=== PATIENT | male | born 1930 | race Caucasian/White ===

== ENCOUNTER 2017-01-29 19:02 | Inpatient (IN) | payer MEDICARE ==
[2017-01-29] MEDS ORDERED: NS 0.9% 1000 ML* 1,000 ML IV ONE (20:05)
[2017-01-29] MEDS ORDERED: Vancomycin(*) 1,000 MG in NS 0.9% 250 ML* 250 ML IVPB ONE (20:05)
[2017-01-29] MEDS ORDERED: Acetaminophen TAB* 325 MG PO ONE (20:13)
--- NOTE | 2017-01-29 20:37 | RAD ---
HISTORY: Fever COMPARISONS: September 06, 2012 VIEWS:1: Single frontal portable view of the chest at 8:26 PM FINDINGS: LINES AND TUBES: None. CARDIOMEDIASTINAL SILHOUETTE: The cardiomediastinal silhouette is normal for portable technique. PLEURA: The costophrenic angles are sharp. No pleural abnormalities are noted. LUNG PARENCHYMA: There is a fine pattern of reticular opacification within the periphery of the lungs predominantly. This is similar to the 2013 examination. ABDOMEN: The upper abdomen is clear. There is no subphrenic gas. BONES AND SOFT TISSUES: No bone or soft tissue abnormalities are noted. IMPRESSION: STABLE CHRONIC INTERSTITIAL CHANGES. NO ACUTE PULMONARY DISEASE
[2017-01-29 21:03] LABS: Hematocrit 30 % (42-52); Hemoglobin 9.5 g/dl (14.0-18.0); Mean Corpuscular HGB Conc 32 g/dl (31-36); Mean Corpuscular Hemoglobin 29 pg (27-31); Mean Corpuscular Volume 92 fL (80-94); Mean Platelet Volume 8 um3 (7.4-10.4); Red Blood Count 3.24 10^6/ul (4.0-5.4); Red Cell Distribution Width 16 % (10.5-15)
[2017-01-29 21:05] LABS: Comments Flag Yes
[2017-01-29 21:06] LABS: Add Diff/Slide Review? Slide Review Added
[2017-01-29 21:18] LABS: Albumin 2.7 g/dL (3.2-5.2); BUN/Creatinine Ratio 25.6 (8-20); Calcium 8.2 mg/dL (8.6-10.3); EGFR African American 65.4 (>60); EGFR Non-African American 50.9 (>60); Globulin 3.6 g/dL (2-4); Potassium 4.4 mmol/L (3.5-5.0); Total Bilirubin 1.4 mg/dL (0.2-1.0); Total Protein 6.3 g/dL (6.4-8.9)
[2017-01-29 21:22] LABS: Troponin I 0.04 ng/mL (<0.04)
[2017-01-29 21:25] LABS: Immature Granulocytes 14 % (0-9); Neutrophil % 78 % (38-83)
[2017-01-29 21:26] LABS: RBC Morphology Normal (Normal)
[2017-01-29] MEDS ORDERED: NS 0.9% 250 ML* 250 ML ONE (22:10)
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
[2017-01-30] MEDS ORDERED: CMCS: Melatonin (NF) 3 MG TAB PO PRN (00:34)
[2017-01-30] MEDS ORDERED: Ondansetron INJ* 2 MG/ML VIAL IV PRN (00:35)
[2017-01-30] MEDS ORDERED: oxyCODONE TAB* 5 MG TAB PO PRN ×2 (00:35→06:05)
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
[2017-01-30] MEDS ORDERED: NS 0.9% 1000 ML* 1,000 ML IV ONE (00:45)
[2017-01-30] MEDS ORDERED: Vancomycin(*) 1,250 MG in NS 0.9% 250 ML* 250 ML IVPB ONE (01:00)
[2017-01-30 01:08] LABS: Budding Yeast Present (Absent); Urine Bacteria Absent (Absent); Urine Bilirubin Negative (Negative); Urine Glucose Negative (Negative); Urine Nitrite Positive (Negative)
[2017-01-30] MEDS ORDERED: Vancomycin per Pharmacy* NOTE FOLLOW UP PRN (01:17)
[2017-01-30] MEDS: NS 0.9% 1000 ML* 1,000 ML IV SCH ×3 (03:27→16:23)
[2017-01-30] MEDS ORDERED: Cefepime(*) 1 GM in NS 0.9% 50 ML* 50 ML IVPB SCH (04:00)
[2017-01-30 04:58] LABS: Hematocrit 29 % (42-52); Hemoglobin 9.3 g/dl (14.0-18.0); Mean Corpuscular HGB Conc 32 g/dl (31-36); Mean Corpuscular Hemoglobin 29 pg (27-31); Mean Corpuscular Volume 92 fL (80-94); Mean Platelet Volume 8 um3 (7.4-10.4); Red Blood Count 3.18 10^6/ul (4.0-5.4); Red Cell Distribution Width 16 % (10.5-15); White Blood Count 33.1 10^3/ul (3.5-10.8)
[2017-01-30 05:01] LABS: BUN/Creatinine Ratio 25.2 (8-20); Calcium 8.1 mg/dL (8.6-10.3); EGFR African American 71.6 (>60); EGFR Non-African American 55.7 (>60)
[2017-01-30 05:02] LABS: Comments Flag Yes
[2017-01-30] MEDS: Omeprazole CAP* 20 MG PO SCH (05:48)
[2017-01-30 06:13] LABS: Troponin I 0.13 ng/mL (<0.04)
[2017-01-30] MEDS ORDERED: oxyCODONE ORAL.SOLN* 5 MG/5 ML UDC PO PRN (06:30)
[2017-01-30] MEDS ORDERED: Levothyroxine TAB* 75 MCG TAB PO SCH (07:00)
--- NOTE | 2017-01-30 07:42 | RAD ---
INDICATION: Sepsis recent hip fracture repair. COMPARISON: Comparison is made with a prior x-ray study of the right hip from April 06, 2015. TECHNIQUE: 2 views of the right femur were obtained. FINDINGS: There is soft tissue swelling adjacent to the right hip. The patient is status post total right hip replacement surgery. The bones and prostheses are in normal alignment. There are 2 surgical plates transfixed with multiple screws transfixing a fracture of the acetabulum. There are multiple surgical ilana present laterally. There is a single surgical clip which projects over the region of the right greater trochanter. No bony erosive changes are seen. IMPRESSION: SOFT TISSUE SWELLING, POSTSURGICAL AND POSTTRAUMATIC CHANGES DESCRIBED.
--- NOTE | 2017-01-30 07:42 | RAD ---
INDICATION: Right hip pain. Recent fracture. COMPARISON: April 06, 2015 TECHNIQUE: An AP view of the pelvis and AP views of the hip in neutral and abducted position were obtained FINDINGS: Bones: There are no acute bony findings. There is interval postoperative fixation of a fracture the right hemipelvis involving the acetabulum and right superior and inferior pubic rami. There is existing right hip prosthesis which appears normally seated.. Joint spaces: Advanced narrowing/osteocytic change left hip. SI joints/symphysis: The SI joints and symphysis are intact. Other: None IMPRESSION: SUBACUTE FRACTURES RIGHT HEMIPELVIS. RIGHT HIP ARTHROPLASTY. ADVANCED OSTEOARTHRITIS LEFT HIP.
--- NOTE | 2017-01-30 07:45 | RAD ---
INDICATION: Sepsis, assess for source. TECHNIQUE: 2 views of the right forearm were obtained. FINDINGS: There is a splint present along the lateral aspect of the forearm and wrist. The bones appear osteopenic and in normal alignment. There is diffuse soft tissue swelling present. No significant focal osseous abnormality is seen. IMPRESSION: SOFT TISSUE SWELLING, NO FOCAL OSSEOUS ABNORMALITY IS SEEN.
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
[2017-01-30] MEDS: Tamsulosin CAP* 0.4 MG PO SCH (08:49)
[2017-01-30] MEDS: Docusate CAP* 100 MG PO SCH ×2 (08:49→21:15)
[2017-01-30] MEDS: Levothyroxine TAB* 88 MCG TAB PO SCH (08:49)
--- NOTE | 2017-01-30 08:49 | RAD ---
Indication: Right hand injury. 4 views of the right hand demonstrates degenerative changes of the trapezium first metacarpal joint. Impacted fracture of the proximal phalanx of the thumb is noted. IMPRESSION: Impacted comminuted fracture proximal and of the proximal phalanx of the thumb.
--- NOTE | 2017-01-30 08:52 | RAD ---
Indication: Right wrist injury 3 views of the wrist demonstrates no fracture. Fracture of the proximal phalanx of the thumb is noted. Degenerative changes of the carpal metacarpal joint is present. IMPRESSION: NO FRACTURE OF THE WRIST IS NOTED.
[2017-01-30] MEDS: Vancomycin(*) 750 MG in NS 0.9% 250 ML* 250 ML IVPB SCH ×2 (10:42→21:39)
--- NOTE | 2017-01-30 10:57 | PN ---
Progress Note - Progress Note Date of Service: 01/30/17 Note: Xray of the right thumb reviewed: + for impacted intra articular proximal phalanx fracture right thumb, advanced CMC arthritis. Patient was given the option of continuation with orthoplast splint or thumb spica brace, he and family opted for the latter. 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 Velcro thumb spica applied without difficulty for protection.
[2017-01-30] MEDS: oxyCODONE TAB* 5 MG TAB PO PRN ×2 (11:56→17:53)
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
--- NOTE | 2017-01-30 13:15 | RAD ---
INDICATION: Evaluate for pyelonephritis. COMPARISON: There are no prior studies available for comparison. TECHNIQUE: Multiple real-time images of the kidneys were obtained. FINDINGS: The kidneys are normal in size shape and echogenicity. The right kidney measured 11.6 x 4.5 x 5.1 cm and the left kidney measured 11.7 x 5.0 x 5.0 cm. No hydronephrosis is present. There is a mildly complex cyst arising from the superior pole of the left kidney measuring 5.8 x 4.2 x 3.8 cm. IMPRESSION: 1. NO EVIDENCE FOR HYDRONEPHROSIS. 2. MILDLY COMPLEX CYST ARISING FROM THE SUPERIOR POLE OF THE LEFT KIDNEY RECOMMEND A FOLLOW-UP RENAL ULTRASOUND IN 6 MONTHS TIME TO DEMONSTRATE STABILITY.
[2017-01-30] MEDS: Cefepime(*) 1 GM in NS 0.9% 50 ML* 50 ML IVPB SCH (16:23)
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
[2017-01-30] MEDS: Atorvastatin* 10 MG TAB PO SCH (17:49)
[2017-01-30] MEDS: Donepezil TAB* 5 MG PO SCH (17:51)
[2017-01-30] MEDS: Acetaminophen TAB* 325 MG PO PRN (17:53)
[2017-01-31] MEDS: Cefepime(*) 1 GM in NS 0.9% 50 ML* 50 ML IVPB SCH ×2 (04:09→16:50)
[2017-01-31 05:37] LABS: Hematocrit 27 % (42-52); Hemoglobin 8.7 g/dl (14.0-18.0); Mean Corpuscular HGB Conc 32 g/dl (31-36); Mean Corpuscular Hemoglobin 30 pg (27-31); Mean Corpuscular Volume 92 fL (80-94); Mean Platelet Volume 8 um3 (7.4-10.4); Red Blood Count 2.93 10^6/ul (4.0-5.4); Red Cell Distribution Width 16 % (10.5-15); White Blood Count 18.4 10^3/ul (3.5-10.8)
[2017-01-31 05:52] LABS: Albumin 2.2 g/dL (3.2-5.2); BUN/Creatinine Ratio 26.7 (8-20); C Reactive Protein 222.1 mg/L (< 5.00); Calcium 7.5 mg/dL (8.6-10.3); EGFR African American 73.7 (>60); EGFR Non-African American 57.3 (>60); Magnesium 1.9 mg/dL (1.9-2.7); Potassium 3.9 mmol/L (3.5-5.0); Total Protein 5.2 g/dL (6.4-8.9)
[2017-01-31] MEDS: Omeprazole CAP* 20 MG PO SCH (05:55)
[2017-01-31] MEDS: Levothyroxine TAB* 88 MCG TAB PO SCH (05:56)
[2017-01-31] MEDS: Heparin VIAL(*) 5000 UNITS/ML VIAL (FIVE THOUSAND) SUBCUT SCH ×3 (05:56→21:54)
[2017-01-31] MEDS: NS 0.9% 1000 ML* 1,000 ML IV SCH ×2 (06:36→20:35)
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
[2017-01-31] MEDS ORDERED: Vancomycin Trough Check NOTE FOLLOW UP ONE (10:00)
[2017-01-31] MEDS: Docusate CAP* 100 MG PO SCH ×2 (10:19→21:56)
[2017-01-31] MEDS: Tamsulosin CAP* 0.4 MG PO SCH (10:32)
[2017-01-31] MEDS: Acetaminophen TAB* 325 MG PO PRN (10:33)
[2017-01-31] MEDS: Vancomycin(*) 750 MG in NS 0.9% 250 ML* 250 ML IVPB SCH ×2 (11:32→21:56)
[2017-01-31] MEDS: Potassium & Sodium Phos 250MG* = 1 PACKET PO SCH ×2 (14:07→20:58)
[2017-01-31] MEDS: Donepezil TAB* 5 MG PO SCH (17:53)
[2017-01-31] MEDS: Atorvastatin* 10 MG TAB PO SCH (17:53)
[2017-02-01] MEDS: Cefepime(*) 1 GM in NS 0.9% 50 ML* 50 ML IVPB SCH ×2 (04:00→16:03)
[2017-02-01] MEDS: Levothyroxine TAB* 88 MCG TAB PO SCH (05:39)
[2017-02-01] MEDS: Omeprazole CAP* 20 MG PO SCH (05:39)
[2017-02-01] MEDS: Heparin VIAL(*) 5000 UNITS/ML VIAL (FIVE THOUSAND) SUBCUT SCH ×3 (05:40→21:42)
[2017-02-01 06:52] LABS: Hematocrit 26 % (42-52); Hemoglobin 8.4 g/dl (14.0-18.0); Mean Corpuscular HGB Conc 33 g/dl (31-36); Mean Corpuscular Hemoglobin 30 pg (27-31); Mean Corpuscular Volume 92 fL (80-94); Mean Platelet Volume 8 um3 (7.4-10.4); Red Cell Distribution Width 16 % (10.5-15); White Blood Count 7.6 10^3/ul (3.5-10.8)
[2017-02-01] MEDS: Docusate CAP* 100 MG PO SCH ×2 (07:16→21:36)
[2017-02-01 07:33] LABS: BUN/Creatinine Ratio 23.8 (8-20); C Reactive Protein 117.1 mg/L (< 5.00); Calcium 7.3 mg/dL (8.6-10.3); EGFR African American 89.9 (>60); EGFR Non-African American 69.9 (>60); Potassium 3.8 mmol/L (3.5-5.0)
--- NOTE | 2017-02-01 08:10 | PN ---
Progress Note - Progress Note Date of Service: 02/01/17 Note: Doing well this morning. Having minimal hip pain. Wound has been dry and is without a dressing. Tmax 99.6 over last 24 hours. No pain with logroll right hip. Wound c/d/i. [place] in place, No painful joint in any extremities this morning. Thumb spica brace in place. WBC trending down. 7.6 this morning. A/P: No evidence of hardware infection or septic arthritis. R thumb proximal phalanx fracture in thumb spica brace. Continue care. No orthopedic intervention at this time.
[2017-02-01] MEDS: Potassium & Sodium Phos 250MG* = 1 PACKET PO SCH ×3 (09:35→21:42)
[2017-02-01] MEDS: Tamsulosin CAP* 0.4 MG PO SCH (09:35)
[2017-02-01] MEDS: Vancomycin(*) 750 MG in NS 0.9% 250 ML* 250 ML IVPB SCH (09:39)
--- NOTE | 2017-02-01 10:30 | PN ---
Subjective - Subjective Reason for Note: Progress Note History: He is feeling improved. He had some chills this morning when having b'fast and is wearing a blanket, but no fever measured. He is in no pain when at rest, but transfers are painful. Sitting in a chair for 1 hour has made him tired. He has a history of BPH and was first catheterized at [facility] when he fractured his right acetabulum. he has not had his Delgado removed despite the likely UTI/sepsis. He has an appetite, no nausea or vomiting and is keeping down oral fluids - he continues to have NS running. Active Problems: Active Problems Elevated troponin I measurement (Acute) R74.8 Fracture of thumb, right, closed (Acute) S62.501A Pseudomonas aeruginosa infection (Acute) A49.8 Urinary tract infection associated with catheterization of urinary tract (Acute ) T83.511A, N39.0 Acetabular fracture (Chronic) S32.409A BPH with obstruction/lower urinary tract symptoms (Chronic) N40.1, N13.8 History of CVA (cerebrovascular accident) (Chronic) Z86.73 History of arthroplasty of right hip (Chronic) Z96.641 Hyperlipidemia (Chronic) E78.5 Primary hypothyroidism (Chronic) E03.9 Restless leg syndrome (Chronic) Current Medications: Current Medications Acetaminophen (Tylenol Tab*) 650 mg PO Q6H PRN PRN Reason: FEVER/PAIN Last Admin: 01/31/17 10:33 Dose: 650 mg Atorvastatin Calcium (Lipitor*) 10 mg PO 1700 [facility] Last Admin: 01/31/17 17:53 Dose: 10 mg Docusate Sodium (Colace Cap*) 200 mg PO BID [facility] Last Admin: 02/01/17 07:16 Dose: Not Given Donepezil HCl (Aricept Tab*) 10 mg PO QPM [facility] Last Admin: 01/31/17 17:53 Dose: 10 mg Heparin Sodium (Porcine) (Heparin Vial(*)) 5,000 units SUBCUT Q8HR [facility] Last Admin: 02/01/17 05:40 Dose: 5,000 units Cefepime HCl 1 gm/ Sodium (Chloride) 50 mls @ 100 mls/hr IVPB 0400,1600 [facility] Last Admin: 02/01/17 04:00 Dose: 100 mls/hr Levothyroxine Sodium (Synthroid Tab*) 88 mcg PO 0600 [facility] Last Admin: 02/01/17 05:39 Dose: 88 mcg Melatonin (Melatonin (Nf)) 3 mg PO BEDTIME PRN; Protocol PRN Reason: Sleep Omeprazole (Prilosec Cap*) 20 mg PO DAILY@0600 [facility] Last Admin: 02/01/17 05:39 Dose: 20 mg Oxybutynin Chloride (Ditropan Xl Tab*) 10 mg PO DAILY [facility] Oxycodone HCl (Roxycodone Tab*) 2.5 mg PO Q4H PRN PRN Reason: PAIN - MODERATE Last Admin: 01/30/17 17:53 Dose: 2.5 mg Oxycodone HCl (Oxycodone Oral.Soln*) 1 mg PO Q4H PRN PRN Reason: PAIN Potassium Phos/Sodium Phos (Neutra Phos 250 Mg Tolu*) 250 mg PO TID [facility] Last Admin: 02/01/17 09:35 Dose: 250 mg Tamsulosin HCl (Flomax Cap*) 0.4 mg PO DAILY [facility] Last Admin: 02/01/17 09:35 Dose: 0.4 mg - Review of Systems Constitutional Symptoms: Yes: Fatigue Pulmonary: Negative: Cough, Sputum, Respiratory Distress Cardiology: Negative: Chest Pain, Shortness of Breath, Palpitations, Swelling of Ankles Gastroenterology: Positive: Change in Bowel Habits - He has little bowel sensation and can't tell me if there has been a change Negative: Nausea, Vomiting, Anorexia Home Medications: Home Medications Medication Instructions Recorded Confirmed Type Atorvastatin* [Lipitor*] 10 mg PO 1700 03/21/13 01/29/17 History Donepezil TAB* [Aricept TAB*] 10 mg PO QPM 03/21/13 01/29/17 History Folic Acid 1,200 mcg PO QPM 03/21/13 01/29/17 History Levothyroxine TAB* [Synthroid 75 88 mcg PO DAILY 03/21/13 01/29/17 History MCG TAB*] Magnesium Oxide (mg Supplement 400 mg PO DAILY 03/21/13 01/29/17 History [Magnesium] Multiple Vitamin [Multivitamins] 1 cap PO DAILY 03/21/13 01/29/17 History [place]-3 Fatty Acids [Fish Oil] 1,000 mg PO QPM 03/21/13 01/29/17 History Acetaminophen [Tylenol] 650 mg PO Q6HR 01/29/17 01/29/17 History Alum & Mag Hydrox-Simethicone 1 david PO Q4HR PRN 01/29/17 History [Mylanta] Bisacodyl SUPP* [Dulcolax Supp*] 10 mg MT DAILY PRN 01/29/17 01/29/17 History Lovenox 30 mg PO BID 01/29/17 01/29/17 History Magnesium Hydroxide LIQ* [Milk of 30 ml PO AC PRN 01/29/17 01/29/17 History Magnesia LIQ*] Miralax* 17 gm PO DAILY 01/29/17 01/29/17 History Sennosides [Eq Natural Laxative] 17.2 mg PO BEDTIME 01/29/17 01/29/17 History Tamsulosin CAP* [Flomax CAP*] 2 tab PO DAILY 01/29/17 01/29/17 History oxyCODONE TAB* [Roxycodone TAB 5 2.5 mg PO Q4H PRN 01/29/17 01/29/17 History mg*] oxyCODONE TAB* [Roxycodone TAB 5 5 mg PO Q4H PRN 01/29/17 01/29/17 History mg*] Allergies: Allergies Allergy/AdvReac Type Severity Reaction Status Date / Time No Known Allergies Allergy Verified 03/29/13 10:58 Objective - Vital Signs Vital Signs: Vital Signs 01/31/17 01/31/17 01/31/17 11:46 15:39 16:17 Temperature 98.9 F 98.5 F Pulse Rate 63 65 Respiratory 16 20 Rate Blood Pressure 101/41 109/39 (mmHg) O2 Sat by Pulse 98 99 99 Oximetry 01/31/17 01/31/17 01/31/17 19:29 19:36 19:48 Temperature 99.6 F Pulse Rate 74 Respiratory 20 20 24 Rate Blood Pressure 112/45 (mmHg) O2 Sat by Pulse 100 Oximetry 01/31/17 01/31/17 02/01/17 20:40 23:56 03:59 Temperature 99.2 F 98.7 F Pulse Rate 76 72 Respiratory 20 20 Rate Blood Pressure 128/56 129/54 (mmHg) O2 Sat by Pulse 99 98 98 Oximetry 02/01/17 02/01/17 07:20 07:31 Temperature 98.6 F Pulse Rate 68 Respiratory 20 18 Rate Blood Pressure 120/52 (mmHg) O2 Sat by Pulse 98 98 Oximetry - Intake and Output Intake and Output: Intake & Output 01/29/17 01/30/17 01/31/17 02/01/17 11:59 11:59 11:59 11:59 Intake Total 1720 3224 2405 Output Total 440 1100 1200 Balance 1280 2124 1205 Weight 158 lb 8.198 oz 166 lb 6.4 oz 169 lb 12.8 oz Intake: IV Fluids 1124 1829 1555 ABX - CEFEPIME 55 ABX - VANCOMYCIN 520 NS (0.9%) 1124 1829 980 IVPB 66 365 ABX - CEFEPIME 110 ABX - VANCOMYCIN 255 NS (0.9%) 66 Oral 530 1030 850 Output: Delgado 440 1100 1200 Other: Date of Last Bowel T Movement # Bowel Movements 1 1 Estimated Stool Amount Medium Medium ADLs: Meal Record Start: 01/30/17 01: 32 Freq: 09,13,18 Status: Inactive Created 01/30/17 01:32 System (Rec: 01/30/17 01:32 System ICU-C25) Document 01/30/17 09:00 [id number] (Rec: 01/30/17 11:07 [id number] ICU-C10) ADLs: Meal Record Start: 01/30/17 12: 30 Freq: Status: Active Created 01/30/17 12:30 [id number] (Rec: 01/30/17 12:30 [id number] ICU-C10) Document 01/30/17 14:00 [id number] (Rec: 01/30/17 14:51 [id number] ICU-M06) Document 01/30/17 20:05 [id number] (Rec: 01/30/17 20:05 [id number] SSU-M09) Document 02/01/17 10:14 [id number] (Rec: 02/01/17 10:14 [id number] SSU-C19) Intake and Output Start: 01/29/17 19: 17 Freq: Status: Active Created 01/29/17 19:17 System (Rec: 01/29/17 19:17 System ED-C19) Intake and Output Start: 01/30/17 01: 32 Freq: 06,14,22 Status: Inactive Created 01/30/17 01:32 System (Rec: 01/30/17 01:32 System ICU-C25) Document 01/30/17 03:00 [id number] (Rec: 01/30/17 04:14 [id number] ICU-C12) Document 01/30/17 05:58 [id number] (Rec: 01/30/17 06:03 [id number] ICU-C12) Intake and Output Start: 01/30/17 12: 30 Freq: DAILY@0600,1400,2200 Status: Active Created 01/30/17 12:30 [id number] (Rec: 01/30/17 12:30 [id number] ICU-C10) Document 01/30/17 14:00 [id number] (Rec: 01/30/17 14:11 [id number] ICU-C10) Document 01/30/17 22:45 [id number] (Rec: 01/30/17 22:45 [id number] SSU-M02) Document 01/31/17 06:01 [id number] (Rec: 01/31/17 06:02 [id number] SSU-M02) Document 01/31/17 07:52 [id number] (Rec: 01/31/17 07:52 [id number] SSU-C12) Document 01/31/17 17:30 [id number] (Rec: 01/31/17 17:30 [id number] SSU-M10) Document 01/31/17 22:00 [id number] (Rec: 01/31/17 22:28 [id number] SSU-C05) Document 02/01/17 05:45 [id number] (Rec: 02/01/17 05:45 [id number] SSU-M03) - Physical Exam General Physical Exam Comment: He is sitting in the chair. He is oriented and conversational. He can give an account of himself, though there are some holes in his account. General: No Cyanosis, No Anemia, No Jaundice Skin: Normal: Rash Lungs and Chest: Yes: Chest Expansion Full, Chest Expansion Symetrica, Vessicular Breath Sounds. No: Crackles, Wheezes Heart Rate and Rhythm: Regular Additional Cardiovascular: Yes: Normal Heart Sounds. No: Heart Murmur, Pedal Edema Abdominal Exam: Yes: Soft, Bowel Sounds Present. No: Distention, Abdominal Mass , Abdominal Tenderness Results - Results Lab Results: Laboratory Results - last 24 hr 01/31/17 02/01/17 02/01/17 10:03 06:47 06:47 WBC 7.6 RBC 2.80 L Hgb 8.4 L Hct 26 L MCV 92 MCH 30 MCHC 33 RDW 16 H Plt Count 313 MPV 8 Sodium 132 L Potassium 3.8 Chloride 107 Carbon Dioxide 21 L Anion Gap 4 BUN 24 Creatinine 1.01 Est GFR ( Amer) 89.9 Est GFR (Non-Af Amer) 69.9 BUN/Creatinine Ratio 23.8 H Glucose 97 Calcium 7.3 L C-Reactive Protein 117.10 H Vancomycin Trough 9.7 Radiology Results: Patient Name: SILVANO MONTGOMERY Medical Record#: [id number] Ordering Physician: Fabio Wood MD Acct.#: [id number] : 1930 Age: 86 Sex: M Location: [facility] Exam Date: 01/30/17 0800 ADM Status: ADM IN Order Information: US RENAL COMPLETE Accession Number: [id number] CPT: 19861 INDICATION: Evaluate for pyelonephritis. COMPARISON: There are no prior studies available for comparison. TECHNIQUE: Multiple real-time images of the kidneys were obtained. FINDINGS: The kidneys are normal in size shape and echogenicity. The right kidney measured 11.6 x 4.5 x 5.1 cm and the left kidney measured 11.7 x 5.0 x 5.0 cm. No hydronephrosis is present. There is a mildly complex cyst arising from the superior pole of the left kidney measuring 5.8 x 4.2 x 3.8 cm. IMPRESSION: 1. NO EVIDENCE FOR HYDRONEPHROSIS. 2. MILDLY COMPLEX CYST ARISING FROM THE SUPERIOR POLE OF THE LEFT KIDNEY RECOMMEND A FOLLOW-UP RENAL ULTRASOUND IN 6 MONTHS TIME TO DEMONSTRATE STABILITY. <Electronically signed by Augustine Junior MD in OV> 01/30/17 1312 Dictated By: Augustine Junior MD Dictated Date/Time: 01/30/17 1312 Transcribed Date/Time: 01/30/17 7197 Copy to: CC:Ericka Bradley MD; Fabio Wood MD; Molly; Inocente Eason MD Imaging - [facility] Imaging - [facility] [place] Imaging - [facility] [address] [address] [place] [address] [place] [address] ph ([phone]) ph ([phone]) ph ([phone]) 1 of 1 EKG Report: Transthoracic echocardiogram Conclusions The left ventricular chamber size is normal. Mild concentric left ventricular hypertrophy is observed. Global left ventricular wall motion and contractility are within normal limits. There is normal left ventricular systolic function. The estimated ejection fraction is 60-65%. The left atrial chamber size is normal. The right ventricular cavity size is normal. The right ventricular global systolic function is normal. No significant valvular abnormalities noted. Compared to prior study from 08/2012, no significant changes noted. Other Results/Reports: RUN DATE: 02/01/17 [facility] LAB LIVE PAGE 1 RUN TIME: [address] [facility], [place], [place] [address] Specimen Inquiry Name: SILVANO MONTGOMERY : [address]: Ericka Bradley MD Acct: [id number] Unit: [id number] AGE: 86 Location: [place] [address] Re01/30/17 SEX: M Status: ADM IN SPEC: [id number] APOLINAR: 01/30/17-[address]: Fabio Wood MD REQ: [id number] RECD: 01/30/17-2210 STATUS: COMP OTHR DR: Ericka Barnes _ Inocente Eason MD SOURCE: URINE SPDESC: ORDERED: Urine Culture, S.pneumo Ur Ag COMMENTS: Verbal to [id number] ([facility]) by [id number] at 1213 on 01/31/17. Results read back accurately. Procedure Result Reported Site Urine Culture Final 02/01/17- 09 ML Organism 1 PSEUDOMONAS AERUGINOSA [place] Count 50-75,000 (Many) CFU/ML 1. PSEUDOMONAS AERUGINOSA [facility] RX Ampicillin >=32 R Cefazolin >=64 R Cefepime 4 S Ceftriaxone R Ciprofloxacin <=0.25 S Gentamicin 8 I Levofloxacin 1 S Meropenem <=0.25 S Nitrofurantoin >=512 R Tetracycline >=16 R Pipercillin/Tazobactam 8 S Trimethoprim/Sulfamethoxazole 160 R Amoxicillin/Clavulanic Acid R Contact the Microbiology Department for any additional antibiotic reporting. S.Pneumonia Urine Antigen Final 01/31/17- 0059 ML CONTINUED ON NEXT PAGE * ML = Testing performed at Main Lab DEPARTMENT OF PATHOLOGY, [address] [place] [address] Jaya Resendiz M.D. 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 We have ID of the organism and is sensitive to cefepime and also to fluoroquinolones. I will remove his Delgado catheter to prevent colonization. I will check post-void urine volumes. He is a Shaq lift at present and hence can't stand to urinate. A [place] catheter can be placed to prevent urinary seepage Acetabular fracture (Chronic) He has a pelvic fracture - this is a challenge for mobilization Elevated troponin I measurement (Acute) resolved - he has an unblemished transthoracic echocardiogram Fracture of thumb, right, closed (Acute) resolving BPH with obstruction/lower urinary tract symptoms (Chronic) I discussed the use of ditropam or vesicare. These interact with aricept. I will therefore not perscribe them History of CVA (cerebrovascular accident) (Chronic) This is a major barrier to rehabiliation History of arthroplasty of right hip (Chronic) secondary diagnosis Hyperlipidemia (Chronic) secondary diagnosis Primary hypothyroidism (Chronic) secondary diagnosis Restless leg syndrome (Chronic) secondary diagnosis I called Tere, his daughter. She is concerned about a developing decubitus ulcer. He had urinary retention at [facility]. We will straight catheterize him if he is in retention.
[2017-02-01] MEDS ORDERED: Acetaminophen TAB* 325 MG PO PRN (10:53)
[2017-02-01] MEDS: Donepezil TAB* 5 MG PO SCH (17:05)
[2017-02-01] MEDS: Atorvastatin* 10 MG TAB PO SCH (17:05)
[2017-02-02] MEDS: Cefepime(*) 1 GM in NS 0.9% 50 ML* 50 ML IVPB SCH (03:54)
[2017-02-02 05:52] LABS: Hematocrit 29 % (42-52); Hemoglobin 9.4 g/dl (14.0-18.0); Mean Corpuscular HGB Conc 33 g/dl (31-36); Mean Corpuscular Hemoglobin 30 pg (27-31); Mean Corpuscular Volume 90 fL (80-94); Mean Platelet Volume 8 um3 (7.4-10.4); Red Blood Count 3.17 10^6/ul (4.0-5.4); Red Cell Distribution Width 16 % (10.5-15); White Blood Count 7.4 10^3/ul (3.5-10.8)
[2017-02-02] MEDS: Levothyroxine TAB* 88 MCG TAB PO SCH (06:03)
[2017-02-02] MEDS: Omeprazole CAP* 20 MG PO SCH (06:03)
[2017-02-02] MEDS: Heparin VIAL(*) 5000 UNITS/ML VIAL (FIVE THOUSAND) SUBCUT SCH (06:05)
[2017-02-02 06:08] LABS: Albumin 2.2 g/dL (3.2-5.2); BUN/Creatinine Ratio 24.2 (8-20); C Reactive Protein 85.07 mg/L (< 5.00); Calcium 7.8 mg/dL (8.6-10.3); EGFR African American 101.4 (>60); EGFR Non-African American 78.8 (>60); Globulin 3.2 g/dL (2-4); Potassium 4.2 mmol/L (3.5-5.0); Total Bilirubin 0.7 mg/dL (0.2-1.0); Total Protein 5.4 g/dL (6.4-8.9)
[2017-02-02] MEDS ORDERED: Oxybutynin XL TAB* 5 MG PO SCH (09:00)
[2017-02-02] MEDS: Docusate CAP* 100 MG PO SCH (09:20)
[2017-02-02] MEDS: Tamsulosin CAP* 0.4 MG PO SCH (09:26)
[2017-02-02] MEDS: Potassium & Sodium Phos 250MG* = 1 PACKET PO SCH (09:28)
[2017-02-02 10:49] VITALS: BP 125/55
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
--- NOTE | 2017-02-02 11:22 | PN ---
Progress Note - Progress Note Date of Service: 02/02/17 Note: Patient seen at bedside, alert and oriented. Continues to feel better overall. [facility] Vital Signs Temp 98.4 F 02/02/17 07:22 Pulse 64 02/02/17 07:22 Resp 18 02/02/17 07:22 BP 125/55 02/02/17 07:22 Pulse Ox 99 02/02/17 07:22 Intake & Output 02/01/17 02/02/17 02/02/17 18:59 06:59 18:59 Intake Total 1695 305 Output Total 350 1725 725 Balance 1345 -1420 -725 Weight 161 lb Intake: IV Fluids 260 80 ABX - CEFEPIME 55 NS (0.9%) 260 25 IVPB 325 ABX - CEFEPIME 55 ABX - VANCOMYCIN 270 Oral 1110 225 Output: Urine 0 0 Delgado 350 Straight Cath 1725 725 Other: Date of Last Bowel 0 Movement # Bowel Movements 0 1 Estimated Stool Amount Medium Laboratory Results - last 24 hr 02/02/17 02/02/17 02/02/17 05:38 05:38 05:38 WBC 7.4 RBC 3.17 L Hgb 9.4 L Hct 29 L MCV 90 MCH 30 MCHC 33 RDW 16 H Plt Count 326 MPV 8 Neut % (Auto) 62.3 Lymph % (Auto) 16.6 L Branch % (Auto) 16.4 H Eos % (Auto) 3.5 Baso % (Auto) 1.2 Absolute Neuts (auto) 4.6 Absolute Lymphs (auto) 1.2 Absolute Monos (auto) 1.2 H Absolute Eos (auto) 0.3 Absolute Basos (auto) 0.1 Absolute Nucleated RBC 0.01 Nucleated RBC % 0.1 Sodium 132 L Potassium 4.2 Chloride 106 Carbon Dioxide 21 L Anion Gap 5 BUN 22 Creatinine 0.91 Est GFR ( Amer) 101.4 Est GFR (Non-Af Amer) 78.8 BUN/Creatinine Ratio 24.2 H Glucose 95 Calcium 7.8 L Phosphorus 2.1 L Total Bilirubin 0.70 AST 20 ALT 20 Alkaline Phosphatase 229 H C-Reactive Protein 85.07 H Total Protein 5.4 L Albumin 2.2 L Globulin 3.2 Albumin/Globulin Ratio 0.7 L Splint comfortable on Right wrist/thumb Right hip incision reveals mild staple reaction, wound healing well. All ilana were removed and steri strips applied to the incision for support. calf non tender and soft A/ Impacted right thumb proximal phalanx fracture, conservative tx in spint for 4- 6 weeks Right hip claire/ ORIF pelvis P/Discharge to rehab Follow up with [facility] orthopedics as previously scheduled.
== END 2017-02-02 11:50 | DRG 699 ==
LOC: ED 19:02 → ICU 01-30 00:31 → SSU 01-30 15:42
PROVIDERS: ADMIT Hospitalist; ATTEND Internal Medicine Geriatric Medicine
DX: T83.511A Infection and inflammatory reaction due to indwelling urethral catheter, initial encounter (principal); I24.8 Other forms of acute ischemic heart disease; R78.81 Bacteremia; S32.509A Unspecified fracture of unspecified pubis, initial encounter for closed fracture; F03.90 Unspecified dementia, unspecified severity, without behavioral disturbance, psychotic disturbance, mood disturbance, and anxiety; E83.39 Other disorders of phosphorus metabolism; I69.351 Hemiplegia and hemiparesis following cerebral infarction affecting right dominant side; B96.5 Pseudomonas (aeruginosa) (mallei) (pseudomallei) as the cause of diseases classified elsewhere; N13.8 Other obstructive and reflux uropathy; N39.0 Urinary tract infection, site not specified; N28.1 Cyst of kidney, acquired; R74.8 Abnormal levels of other serum enzymes; E78.5 Hyperlipidemia, unspecified; E03.9 Hypothyroidism, unspecified; G25.81 Restless legs syndrome; F32.9 Major depressive disorder, single episode, unspecified; Z96.641 Presence of right artificial hip joint; Z66 Do not resuscitate; I25.10 Atherosclerotic heart disease of native coronary artery without angina pectoris; I10 Essential (primary) hypertension; M16.12 Unilateral primary osteoarthritis, left hip; Z96.1 Presence of intraocular lens; H91.90 Unspecified hearing loss, unspecified ear; M18.11 Unilateral primary osteoarthritis of first carpometacarpal joint, right hand; S62.511A Displaced fracture of proximal phalanx of right thumb, initial encounter for closed fracture; X58.XXXA Exposure to other specified factors, initial encounter; Y73.1 Therapeutic (nonsurgical) and rehabilitative gastroenterology and urology devices associated with adverse incidents; N40.1 Benign prostatic hyperplasia with lower urinary tract symptoms; R33.9 Retention of urine, unspecified; Z80.3 Family history of malignant neoplasm of breast; Z82.5 Family history of asthma and other chronic lower respiratory diseases; Z98.42 Cataract extraction status, left eye; Z98.41 Cataract extraction status, right eye; Y92.9 Unspecified place or not applicable; S32.409D Unspecified fracture of unspecified acetabulum, subsequent encounter for fracture with routine healing; Z79.01 Long term (current) use of anticoagulants
CPT/HCPCS: 36415; 71010; 76775; 80048; 80053; 80202; 81003; 81015; 83605; 83735; 83880; 84100; 84134; 84484; 85025; 85027; 85610; 85730; 86140; 87040; 87077; 87086; 87186; 87641; 87899; 93005; 93306; 94760; A9270-GY; J0692; J1644; J2543; J3370